=== PATIENT | male | born 1940 | race Caucasian/White ===

== ENCOUNTER 2017-04-01 14:56 | Outpatient (RCR) | payer MEDICARE ==
[2016-09-18 11:22] VITALS: BMI 35.9
[2017-04-01 12:39] LABS: INR 1.14
[~2017-04-01 14:56] MED LIST: AMLO-104 PO; AMLO-96 PO; AMLO-98 PO; AMLO-99 PO; AMOX1TAB9 PO; ASPI-1441; ATOR40TA69 PO; ATR80PT PO; CIP500 PO; CIPR-214 PO; CIPR-344 PO; DOC100 PO; DOCU-416 PO; FAM20 PO; FINA5TAB67 PO; GLIP-130 PO; GLIP-137 PO; HYDR-317 PO; HYDR-4309 PO; INSU100I30 SUBQ; LANI SUBQ; LIS20 PO; LISI-374 PO; LOR5/325 PO; MAGN30OR2 PO; MELA5TAB21 PO; METF-1 PO; METH-284 PO; METO-257 PO; METO-259 PO; OXYB10TA21 PO; OXYC-865 PO; PAN40 PO; PER PO; PHEN-530 PO; PHEN200T32 PO; PHENA200 PO; PRAV40TA77 PO; SIMV-44 PO; SITA100T9 PO; SITA25TA PO; TAM4 PO; TAMS0.4C70 PO; TOLT4CAP13 PO; TOVIAZ; TRIA1CAP85 PO; WARF5TAB23 PO; WARF7.5T32 PO
--- NOTE | 2017-04-03 13:10 | RADIOLOGY IMAGING REPORT ---
FACILITY: [facility] PATIENT NAME: Ulices Becerra : 1940 MR: [id number] V: [id number] EXAM DATE: ORDERING PHYSICIAN: GIANA CANO TECHNOLOGIST: Location: [facility] Patient: Ulices Becerra : 1940 Visit/Account:[id number] Date of Sevice: 04/03/2017 Ultrasound-guided lymph node biopsy x3: HISTORY: Left neck adenopathy, thyroid cancer, FNA left note only COMPARISON: Correlation made with images and report from thyroid and neck ultrasound, [facility]. Procedure/findings: Risks and benefits of the procedure were discussed with the patient who signed co nsent. Formal timeout was performed. Images were obtained of the left neck. Left level II lymph node measu res 1.3 cm in greatest dimension. This does not contain a normal fatty hilum. Just inferior to this there is a second lymph node also level II measuring 9 mm which also does not have a normal fatty hi lum. Level III lymph node measures 1.4 cm in dimension. This does have a fatty hilum but is mildly enlarged. Fine-needle aspirates were obtained of each of these lymph nodes. Lymph nodes and samples were numbered from superior to inferior. Skin was prepped and draped in a sterile fashion. Skin and soft tissues anesthetized with 1% lidocai ne. Level II lymph node labeled #1 was sampled under direct ultrasound guidance with separate 27-gauge ne edles. 2 passes were made and samples given to the emissions testing and repair technician and slides prepared. Level II l ymph node labeled #2 was sampled under direct ultrasound guidance with separate 27-gauge needles. 2 passes were made and samples given to the emissions testing and repair technician and slides prepared. Level III lymph node labeled #3 was sampled under direct ultrasound guidance with separate 27-gauge needles. 2 passes we re made and samples given to the emissions testing and repair technician and slides prepared. Preliminary report from the p athologist reviewed the slides without adequate material was present for diagnosis from each lymph no de. No apparent complications occurred during the procedure. IMPRESSION: Ultrasound-guided fine-needle aspiration of 3 separate lymph nodes in the left neck as de scribed above. Report Dictated By: Bekah Duggan MD at 04/03/2017 12:59 PM Report E-Signed By: Bekah Duggan MD at 04/03/2017 1:06 PM WSN:[email or web address]
== END 2017-04-03 13:33 | disposition home or self-care (01) ==
LOC: US 14:56 → EDSTATUS 14:56 → US 04-03 13:33
PROVIDERS: ATTEND Otolaryngology
DX: R59.0 Localized enlarged lymph nodes (principal); I48.91 Unspecified atrial fibrillation
CPT/HCPCS: 36415; 38505; 76942; 85610; 85730; 88104; 88172

== ENCOUNTER → 2017-05-21 | Outpatient (CLI) | payer MEDICARE, OTHER ==
[2016-09-18 11:22] VITALS: BMI 35.9
[~2017-05-21] MED LIST changes: +ATOR40TA24 PO; +BETH10TA PO; +HYDR-2966 PO; +NOVOLOG SUBQ; +WARF7.5T13 PO; -WARF7.5T32 PO
--- NOTE | 2017-05-22 08:56 | RADIOLOGY IMAGING REPORT ---
FACILITY: [facility] PATIENT NAME: Ulices Becerra : 1940 MR: [id number] V: [id number] EXAM DATE: ORDERING PHYSICIAN: GIANA CANO TECHNOLOGIST: Location: [facility] Patient: Ulices Becerra : 1940 Visit/Account:[id number] Date of Sevice: 05/21/2017 PARATHYROID IMAGING HISTORY: Elevated PTH TECHNIQUE: 26.2 mCi technetium 99m Sestamibi was injected intravenously. Gamma camera images were ob tained of the head, neck and chest at 15 minutes and three hours in various orientations following ra diotracer administration. COMPARISON STUDIES: none FINDINGS: 15 minute images: normal uptake of tracer by the salivary glands, the thyroid gland, and the myocard ium. Excreted hepatobiliary activity is seen beneath the diaphragm. 3 hour images: normal washout of tracer from the thyroid gland. No focal areas of abnormal radiotrac er uptake are identified in the neck or mediastinum to suggest the presence of a parathyroid adenoma. IMPRESSION: No scintigraphic evidence of a parathyroid adenoma Report Dictated By: Milena Lee MD at 05/22/2017 8:48 AM Report E-Signed By: Milena Lee MD at 05/22/2017 8:51 AM WSN:[email or web address]
== END ==
LOC: NUC 07:09
PROVIDERS: ATTEND Otolaryngology
DX: E21.3 Hyperparathyroidism, unspecified (principal)
CPT/HCPCS: 36415; 78070; 82310; 83970; A9500

== ENCOUNTER 2017-06-23 01:03 | Observation (INO) | payer MEDICARE, OTHER ==
[~2017-06-23] VITALS: Ht 182.9 cm; Wt 116.6 kg
[2017-06-23] VITALS (13 sets, daily range): BP systolic 114–145; BP diastolic 56–89
[~2017-06-23 01:03] MED LIST changes: +FAMOTIDINE 20 MG TAB PO ONE; +LIDOCAINE/SOD BICARB 8.4% SYR ID ONE; +MIDAZOLAM 2 MG/2 ML VIAL IVP PRN; +NORMOSOL R SOLN(*) 1000 ML BAG 1,000 ML IV PRN; +ceFAZolin(*) 2GM/D5W 50ML 50 ML IVPB ONE
[2017-06-23] MEDS ORDERED: ceFAZolin(*) 2GM/D5W 50ML 50 ML IVPB ONE (08:45)
[2017-06-23] MEDS ORDERED: FAMOTIDINE 20 MG TAB PO ONE (08:45)
[2017-06-23] MEDS ORDERED: NORMOSOL R SOLN(*) 1000 ML BAG 1,000 ML IV PRN (08:45)
[2017-06-23] MEDS ORDERED: MIDAZOLAM 2 MG/2 ML VIAL IVP PRN (08:45)
[2017-06-23] MEDS ORDERED: LIDOCAINE/SOD BICARB 8.4% SYR ID ONE (08:45)
[2017-06-23] MEDS ORDERED: LIDO/EPI 1% MDV 1:100,000 20ML INFIL ONE (09:10)
[2017-06-23] MEDS ORDERED: fentaNYL CITR 250 MCG/5 ML AMP ONE (09:59)
[2017-06-23] MEDS ORDERED: LIDOCAINE 2% IV 100 MG/5ML SYR ONE (10:02)
[2017-06-23] MEDS ORDERED: PROPOFOL EMUL(*) 10MG/ML 20 ML 20 ML ONE (10:03)
[2017-06-23] MEDS ORDERED: ONDANSETRON 4 MG/2 ML VIAL ONE (10:17)
[2017-06-23] MEDS ORDERED: KETAMINE HCL 200 MG/20 ML MDV ONE ×4 (10:18→12:16)
[2017-06-23] MEDS ORDERED: ePHEDrine 25 MG/5 ML DISP.SYR IVP ONE ×2 (10:19→10:31)
[2017-06-23] MEDS ORDERED: VASOPRESSIN 20 UNIT/ML VIAL ONE (10:36)
[2017-06-23] MEDS ORDERED: fentaNYL CITR 100 MCG/2 ML AMP ONE ×2 (11:59→13:35)
[2017-06-23] MEDS ORDERED: LR(*) 1000 ML BAG 1,000 ML IV PRN ×2 (12:54→17:15)
--- NOTE | 2017-06-23 12:54 | Post Operative Note ---
Operative Note - ENT Operative Day Date: Jun 23, 2017 Physicians Surgeon: Bryant Anesthesia: GETA Diagnosis Pre-Op Diagnosis: 1. multinodular thyroid goiter 2. hyperparathyroidism Post-Op Diagnosis: same Procedure Procedure(s): 1. total thyroidectomy 2. right paratracheal mass excision Specimen Removed:(Maybe N/A): 1. total thyroid 2. right paratracheal mass Complications: none Fluids Fluids: see anesthesia note Estimated Blood Loss: 250 ml GIANA CANO JR, MD Jun 23, 2017 12:54
[2017-06-23] MEDS ORDERED: MORPHINE 2 MG/ML SYR IVP PRN (12:55)
[2017-06-23] MEDS ORDERED: ONDANSETRON 4 MG ODT TABDP SL PRN (12:55)
[2017-06-23] MEDS ORDERED: INSULIN ASPART 100 UN/ML VIAL SUBQ SCH (13:00)
[2017-06-23] MEDS ORDERED: ALBUTEROL/IPRATROPIUM 3 ML NEB NEB ONE (13:45)
[2017-06-23] MEDS ORDERED: PROMETHAZINE 25 MG/ML 1 ML AMP ONE (14:09)
[2017-06-23] MEDS ORDERED: SUCCINYLCHOL CHL 100MG/5ML SYR IVP ONE (14:36)
[2017-06-23] MEDS ORDERED: INSULIN ASPART 100 U/ML 3 ML PEN SUBQ SCH (17:00)
[2017-06-23] MEDS: ceFAZolin(*) 1 GM VIAL 1 GM in NS(*) 0.9% 100 ML ADDVANT BAG 100 ML IVPB SCH (17:10)
[2017-06-23] MEDS: TAMSULOSIN HCL 0.4 MG CAP PO SCH (17:10)
[2017-06-23] MEDS: APAP/HYDROCODONE 325/5 TAB PO PRN (18:24)
[2017-06-23] MEDS: CALCIUM CARBONATE 500 MG CHEW CHEW SCH (20:28)
[2017-06-23] MEDS: METOPROLOL TART 50 MG TAB PO SCH (20:29)
[2017-06-23] MEDS: INSULIN GLARGINE 100 U/ML 3 ML PEN SUBQ SCH (20:53)
[2017-06-23] MEDS ORDERED: INSULIN GLARGINE 100 U/ML 3 ML PEN SUBQ SCH (21:00)
[2017-06-24] MEDS: ceFAZolin(*) 1 GM VIAL 1 GM in NS(*) 0.9% 100 ML ADDVANT BAG 100 ML IVPB SCH ×3 (00:58→16:48)
[2017-06-24 08:00] VITALS: BP 158/84
[2017-06-24] MEDS: APAP/HYDROCODONE 325/5 TAB PO PRN ×2 (08:00→12:00)
[2017-06-24] MEDS: LISINOPRIL 20 MG TAB PO SCH (08:53)
[2017-06-24] MEDS: HYDROCHLOROTHIAZIDE 25 MG TAB PO SCH (08:53)
[2017-06-24] MEDS: FINASTERIDE 5 MG TAB PO SCH (08:53)
[2017-06-24] MEDS: CALCIUM CARBONATE 500 MG CHEW CHEW SCH ×2 (09:00→20:38)
[2017-06-24] MEDS: METOPROLOL TART 50 MG TAB PO SCH ×2 (09:00→20:38)
[2017-06-24] MEDS: INSULIN GLARGINE 100 U/ML 3 ML PEN SUBQ SCH ×2 (09:31→20:38)
[2017-06-24] MEDS: INSULIN HUM REG 100 UN/ML 3 ML VIAL SC PRN ×3 (12:13→20:42)
[2017-06-24 13:05] VITALS: Ht 182.9 cm; Wt 116.6 kg
--- NOTE | 2017-06-24 15:58 | OPERATIVE REPORT 1 ---
EVENT DATE: June 23, 2017 SURGEON: Darren Hurtado MD ANESTHESIOLOGIST: Joseluis Garcia MD ANESTHESIA: General endotracheal anesthesia. PROCEDURES PERFORMED 1. Total thyroidectomy. 2. Excision of right paratracheal mass. PREOPERATIVE DIAGNOSES 1. Multinodular thyroid goiter. 2. Hyperparathyroidism. POSTOPERATIVE DIAGNOSES 1. Multinodular thyroid goiter. 2. Hyperparathyroidism. INDICATIONS Please refer to the preoperative note. DESCRIPTION OF PROCEDURE The patient was positively identified in the preoperative area. He was there alone. Risks were again explained and include, but were not limited to bleeding , infection, injury to the recurrent laryngeal nerve, transient or permanent dysphonia, injury to the parathyroid glands, transient or permanent hypocalcemia , persistent hyperparathyroidism, and those associated with anesthesia. He acknowledged understanding of those risks. He was then brought back to the operative suite, placed supine on the operative table, and anesthesia was administered. Of note, the laryngeal nerve monitor was applied to the patient and utilized throughout the case. The patient was positioned and then prepped and draped in the usual sterile fashion. A favorable neck crease was identified over the thyroid gland. A 7 cm incision was planned and marked. Approximately 2 mL of 1% lidocaine with epinephrine was infiltrated. The aforementioned incision was then made with a 15 blade down to the underlying subcutaneous tissue. It was dissected with Bovie electrocautery. The platysma muscle was then identified and divided with Bovie electrocautery. Subplatysmal flaps were elevated superiorly to the level of the thyroid notch and inferiorly to the level of the sternal notch. The strap musculature was identified and divided along the median raphe. I elevated the strap muscles off the left thyroid lobe. This was found to be markedly enlarged with multiple nodules. The superior lobe was skeletonized. The superior pole vessels were skeletonized and come across with the Harmonic scalpel. I then carefully dissected the gland from the surrounding connective tissue. Both parathyroid glands were felt to be identified and preserved. I then came across the inferior lobe vessels with the Harmonic scalpel. The lobe was medialized. The recurrent laryngeal nerve was identified and chased through its entrance into the trachea. The lobe was then dissected from the trachea at Mercer ligament. I then proceeded with the contralateral lobe. In a similar fashion, the musculature was elevated off of it. The superior pole vessels were skeletonized and come across with the Harmonic scalpel. I then carefully dissected the lobe from its surrounding connective tissue. The inferior lobe vessels were then come across with the Harmonic scalpel. The superior parathyroid gland was felt to be identified and preserved in situ. The recurrent laryngeal nerve was identified and confirmed with the nerve probe. This was chased through its entrance into the trachea. The lobe was then rotated medially and divided from the trachea at Mercer ligament. The specimen was then marked and sent for permanent pathology. The patient was noted to have a large, approximately 3 cm right paratracheal mass, possibly representing a parathyroid adenoma. This was carefully dissected from the surrounding connective tissue and sent for permanent pathology. The wound was then copiously irrigated with normal saline solution. Surgicel Fibrillar was placed in the bilateral wound bed. The Anant-Feng drain was placed and secured to the skin with a suture. The strap musculature and platysma were then reapproximated with an interrupted chromic stitch. The skin was then closed in a multilayer fashion. The patient was then turned to Anesthesia for emergence. Estimated blood loss was 250 mL, and there were no complications. MTDD
[2017-06-24] MEDS: TAMSULOSIN HCL 0.4 MG CAP PO SCH (16:55)
[2017-06-24 18:27] VITALS: BP 131/77
[2017-06-24 19:52] VITALS: BP 120/80
[2017-06-24 22:24] VITALS: BP 109/68
[2017-06-25] MEDS: ceFAZolin(*) 1 GM VIAL 1 GM in NS(*) 0.9% 100 ML ADDVANT BAG 100 ML IVPB SCH ×2 (00:48→08:52)
[2017-06-25 02:51] VITALS: BP 167/93
[2017-06-25] MEDS ORDERED: CEFU500T10 PO (08:50)
--- NOTE | 2017-06-25 08:52 | Short(Outpt) Discharge Summary ---
Discharge Summary Reason for Hosp/Final Diag: (1) Multinodular goiter Status: Chronic Hospital Course & Plan: Patient is POD #2 s/p total thyroidectomy and excision of paratracheal mass. Pain controlled. Jammie reg diet. Home with oxygen. (2) Hyperparathyroidism Status: Chronic Departure Discharge to: Home Discharge Instructions Home Meds Reported Medications Insulin Aspart (NOVOLOG) 100 Unit/Ml Soln, 7 UNIT SUBQ ACH 05/05/17 Hydrochlorothiazide (HYDROCHLOROTHIAZIDE) 25 Mg Tablet, 1 TAB PO QDAY, TAB 05/05/17 Atorvastatin Calcium (LIPITOR) 40 Mg Tablet, 2 TAB PO HS, TAB 05/05/17 Insulin Glargine (LANTUS) 100 Unit/Ml Soln, 37 UNIT SUBQ BID, ML 05/05/17 Amlodipine Besylate (AMLODIPINE BESYLATE) 10 Mg Tablet, 1 TAB PO QDAY, TAB 05/05/17 Bethanechol Chloride (BETHANECHOL CHLORIDE) 10 Mg Tablet, 10 MG PO DAILY 05/05/17 Lisinopril (LISINOPRIL) 40 Mg Tablet, 40 MG PO QDAY, TAB 05/05/17 Metoprolol Tartrate (METOPROLOL TARTRATE) 100 Mg Tablet, 2 TAB PO BID, TAB 09/22/16 Methimazole (METHIMAZOLE) 10 Mg Tablet, 10 MG PO QDAY 09/17/16 Melatonin (Melatonin) 5 Mg Tab.ir.er, 1-2 TAB PO QHS 09/17/16 Warfarin Sodium (WARFARIN SODIUM) 7.5 Mg Tablet, 7.5 MG PO MoFr 07/21/14 Warfarin Sodium (WARFARIN SODIUM) 5 Mg Tablet, 5 MG PO SuTuWeThSa 07/21/14 Tamsulosin Hcl (TAMSULOSIN HCL) 0.4 Mg Cap.er.24h, 0.4 MG PO QPM 30 min after john meal 07/21/14 Finasteride (FINASTERIDE) 5 Mg Tablet, 5 MG PO QDAY 07/21/14 Diet: Regular Activity: No Heavy Lifting, No Exertion Special Instructions: May shower. GIANA CANO JR, MD June 25, 2017 08:51
[2017-06-25] MEDS: INSULIN HUM REG 100 UN/ML 3 ML VIAL SC PRN (08:53)
[2017-06-25] MEDS: FINASTERIDE 5 MG TAB PO SCH (08:54)
[2017-06-25] MEDS: INSULIN GLARGINE 100 U/ML 3 ML PEN SUBQ SCH (08:54)
[2017-06-25] MEDS: METOPROLOL TART 50 MG TAB PO SCH (08:56)
[2017-06-25] MEDS: HYDROCHLOROTHIAZIDE 25 MG TAB PO SCH (08:58)
[2017-06-25] MEDS: CALCIUM CARBONATE 500 MG CHEW CHEW SCH (09:00)
[2017-06-25] MEDS: LISINOPRIL 20 MG TAB PO SCH (09:00)
[2017-06-25 10:31] VITALS: BP 123/68
[2017-06-25] MEDS ORDERED: HYDR-4309 PO (11:29)
[2017-06-30] MEDS ORDERED: LEVO150T72 PO (15:08)
== END 2017-06-25 12:00 | disposition home health service (06) ==
LOC: OR 01:03 → MED 14:35
PROVIDERS: ADMIT Otolaryngology; ATTEND Otolaryngology
DX: E04.2 Nontoxic multinodular goiter (principal); E21.3 Hyperparathyroidism, unspecified; E11.9 Type 2 diabetes mellitus without complications; I10 Essential (primary) hypertension
CPT/HCPCS: 21552; 36415; 36416; 60240; 82310; 82948; 83970; 88305; 88307; 94640; 94660; 96372; G0378; J0330; J0690; J1815; J2001; J2270; J2405; J2550; J2704; J3010; J3490; J7050; J7620

== ENCOUNTER → 2017-06-30 | Emergency (ER) | payer OTHER ==
[2017-06-24 13:05] VITALS: BMI 34.9
[~2017-06-30] MED LIST changes: +CEFU500T10 PO; -FAMOTIDINE 20 MG TAB PO ONE; +LEVO150T72 PO; -LIDOCAINE/SOD BICARB 8.4% SYR ID ONE; -MIDAZOLAM 2 MG/2 ML VIAL IVP PRN; -NORMOSOL R SOLN(*) 1000 ML BAG 1,000 ML IV PRN; -ceFAZolin(*) 2GM/D5W 50ML 50 ML IVPB ONE
== END ==
LOC: ER 13:01
DX: K59.00 Constipation, unspecified (principal)

== ENCOUNTER → 2017-08-12 | Outpatient (CLI) | payer MEDICARE, OTHER ==
[2017-06-24 13:05] VITALS: BMI 34.9
== END ==
LOC: LAB 08:09
PROVIDERS: ATTEND Otolaryngology
DX: E03.9 Hypothyroidism, unspecified (principal)
CPT/HCPCS: 36415; 84443

== ENCOUNTER → 2018-09-30 | Outpatient (CLI) | payer MEDICARE, OTHER ==
[2017-06-24 13:05] VITALS: BMI 34.9
[~2018-09-30] MED LIST changes: +AMLO-125 PO; +AMLO-127 PO; -AMLO-96 PO; -AMLO-99 PO; -HYDR-4309 PO; +HYDR-653 PO
== END ==
LOC: LAB 14:43
PROVIDERS: ATTEND Otolaryngology
DX: E89.0 Postprocedural hypothyroidism (principal)
CPT/HCPCS: 36415; 84443